=== PATIENT | female | born 1985 | race Caucasian/White ===

== ENCOUNTER 2022-07-17 16:45 | Inpatient (IN) | payer BC ==
[2022-07-17] VITALS (13 sets, daily range): BP systolic 129–162; BP diastolic 70–97; PULSE 72–92; TEMP 97.8–98.2
[~2022-07-17] VITALS: Ht 177.8 cm; Wt 117.7 kg
[2022-07-17] MEDS ORDERED: PRENATAL TABLET PO (17:13)
[2022-07-17] MEDS ORDERED: PROBIOTIC 2 BI1 EACH PO (17:13)
[2022-07-17] MEDS ORDERED: SINGULAIR 110 MG/TAB PO (17:13)
[2022-07-17] MEDS ORDERED: ZYRTEC5 MG PO (17:14)
[2022-07-17 18:17] LABS: HEMATOCRIT 37.5 % (37.0-47.0); HEMOGLOBIN 12.3 g/dl (12.5-16.0); MEAN CELL VOLUME 85 fl (80.0-100.0); MEAN CORPUSCULAR HEMOGLOBIN 28 pg (27-31); MEAN CORPUSCULAR HGB CONC 33 g/dl (33.0-37.0); MEAN PLATELET VOLUME 11.9 fl (7.4-10.4); PLATELET COUNT 259 K/mm3 (130-400); RED BLOOD COUNT 4.44 M/mm3 (4.10-5.30); REDCELL DISTRIBUTION WIDTH-CV 14.1 % (11.5-14.5)
[2022-07-17 18:19] LABS: COLLECTION METHOD CLEAN CATCH; URINE APPEARANCE Clear (CLEAR/HAZY); URINE BLOOD Negative (NEGATIVE); URINE COLOR Yellow (YELLOW); URINE GLUCOSE Negative (NEGATIVE); URINE KETONE Negative (NEGATIVE); URINE NITRATE Negative (NEGATIVE); URINE PROTEIN(semi-quant) Negative (NEGATIVE); URINE UROBILINOGEN 0.2 E.U/dL (0.2-1.0)
[2022-07-17 18:23] LABS: URINE BACTERIA Rare /hpf (NONE SEEN); URINE RBC 0-2 /hpf (0-2); URINE WBC 0-2 /hpf (0-2)
[2022-07-17 18:32] LABS: BAND 8 % (0-10); EOSINOPHIL 1 % (0-4); LYMPHOCYTE 24 % (20.0-51.0); METAMYELOCYTE 1 % (0-0); NEUTROPHILS 62 % (42.0-75.2); PLATELET ESTIMATE NORMAL (NORMAL)
[2022-07-17 18:33] LABS: ALBUMIN 2.6 gm/dL (3.5-5.0); BILIRUBIN,TOTAL 0.3 mg/dL (0.2-1.2); CALCIUM 9.4 mg/dL (8.4-10.2); CREATININE, serum 0.9 mg/dL (0.57-1.11); POTASSIUM 3.7 mmol/L (3.5-4.5)
--- NOTE | 2022-07-17 20:06 | NUR ---
1830 REPORT RECIEVED FROM A BRUCE RN TO ASSUME CARE OF PATIENT AT THIS TIME.
--- NOTE | 2022-07-17 20:08 | NUR ---
1900 ORDERS TO ADMIT PATIENT FOR INDUCTION AT THIS TIME. ASSESSMENT COMPLETED.
--- NOTE | 2022-07-17 20:10 | NUR ---
1910 DR RUIZ AT BEDSIDE. DISCUSSES PLAN WITH PATIENT AND . VERBAL UNDERSTANDING NOTED. SVE FT/60/-2. IV STARTED IN LEFT HAND LR [address] ESPINOZA.
--- NOTE | 2022-07-17 20:22 | NUR ---
2015 DR RUIZ AT BEDSIDE. CYTOTEC 25 MCG PLACED VAGINALLY BY AT THIS TIME.
--- NOTE | 2022-07-17 20:43 | NUR ---
2044 PATIENT REST SIN BED. DENIES NEEDS. WL.
--- NOTE | 2022-07-17 21:42 | NUR ---
118 PATIENT RESTS ON RIGHT SIDE. DENIES NEEDS
--- NOTE | 2022-07-17 21:53 | NUR ---
2200 REPORT GIVEN TO Chelo KERNS RN TO ASSUME CARE AT THIS TIME
[2022-07-18] VITALS (84 sets, daily range): BP systolic 118–184; BP diastolic 61–105; PULSE 68–94; TEMP 97.4–98.2
--- NOTE | 2022-07-18 05:00 | NUR ---
Category 1 FHR tracing obtained. Monitors removed. Pt up to bathroom to void, have small snack, and freshen up before starting pitocin induction.
[2022-07-18 08:37] LABS: HEMOGLOBIN 12.3 g/dl (12.5-16.0); MEAN CELL VOLUME 83 fl (80.0-100.0); MEAN CORPUSCULAR HEMOGLOBIN 28 pg (27-31); MEAN CORPUSCULAR HGB CONC 33 g/dl (33.0-37.0); MEAN PLATELET VOLUME 11.4 fl (7.4-10.4); PLATELET COUNT 256 K/mm3 (130-400); RED BLOOD COUNT 4.46 M/mm3 (4.10-5.30); REDCELL DISTRIBUTION WIDTH-CV 14.3 % (11.5-14.5)
[2022-07-18 08:58] LABS: ALBUMIN 2.5 gm/dL (3.5-5.0); BILIRUBIN,TOTAL 0.3 mg/dL (0.2-1.2); CALCIUM 9.2 mg/dL (8.4-10.2); CREATININE, serum 0.81 mg/dL (0.57-1.11); MAGNESIUM 1.9 mg/dL (1.6-2.6)
--- NOTE | 2022-07-18 10:31 | NUR ---
DR BENAVIDEZ HERE, DOES SVE AND DISCUSSES PREECLAMPSIA, LAB RESULTS, INDUCTION AND POSSIBILITIES FOR PLAN OF CARE
--- NOTE | 2022-07-18 10:54 | NUR ---
0832 - COOK CATHETER PLACED BY DR BENAVIDEZ 0838 - MAG SULFATE 4GM BOLUS STARTED 0845 - GALDAMEZ CATHETER PLACED
--- NOTE | 2022-07-18 11:01 | NUR ---
0857 - MAG 4 GM LOADING DOSE INFUSED, 1GM/HOUR STARTED PER INFUSION PUMP AT 25CC/HR, VVERIFIED WITH Chelo GEIGER RN
--- NOTE | 2022-07-18 11:17 | NUR ---
CTXS NOT TRACING DUE TO MATERNAL POSITION, TOCO ADJUSTED. BEDRAILS PADDED FOR SEIZURE PRECAUTIONS
--- NOTE | 2022-07-18 12:40 | NUR ---
CTXS NOT TRACING WHILE PT ON LEFT SIDE, PT MORE COMFORTABLE ON RIGHT SIDE, C/O BACK AND HIP DISCOMFORT, FEELING SLIGHTLY CRAMPY WITH CTXS
--- NOTE | 2022-07-18 12:43 | NUR ---
WARM PACK TO HIP AND BACK PER PT'S REQUEST. TOCO ADJUSTED, STILL UNABLE TO REFRIGERATION MANAGER CTXS WHILE PT ON LEFT SIDE
--- NOTE | 2022-07-18 14:42 | NUR ---
1405 SROM WITH MODERATE AMOUNT OF CLEAR FLUID, COOKS CATHETER STILL IN PLACE, TRACTION APPLIED AND TAPED TO LEG
--- NOTE | 2022-07-18 16:29 | NUR ---
1543 - COOKS CATHETER FALLS OUT, SVE DONE /-, LARGE AMOUNT OF CLEAR FLUID OUT, FREDERIC CARE DONE, PT STILL FEELS SLIGHTLY CRAMPY, MOSTLY C/O BACK DISCOMFORT. SITS UP IN HIGH FOWLERS
--- NOTE | 2022-07-18 17:18 | NUR ---
1640 LABETALOL 20MG GIVEN IV PUSH
--- NOTE | 2022-07-18 18:15 | NUR ---
UTERINE CTXS NOT TRACING D/T MATERNAL POSITION, TOCO ADJUSTED, PT COMFORTABLE AT THIS TIME, BUT REQUESTING EPIDURAL, T JESSE PORTAL ADMINISTRATOR NOTIFIED PT REQUESTING EPIDURAL
--- NOTE | 2022-07-18 18:20 | NUR ---
Report received from Jeannine PUTNAM. 1825: Ana María WHEELER on unit. 183: Pt assisted to sitting position for epidural placement. Difficulty tracing FHR due to maternal position. Monitors adjusted by this RN. Pt reporting a slight headache at this time but states it is better then before when her blood pressure was elevated. 1840: Ana María WHEELER at bedside for epidural. Procedure explained to pt and spouse who verbalize their understanding. 5: Test dose administered by Ana María WHEELER. See anesthesia records. 1904: Pt assisted to wedge left position. Plan of care and safety precautions explained. Questions answered. Call light within reach.
--- NOTE | 2022-07-18 20:40 | NUR ---
: Difficulty tracing contractions due to maternal position. TOCO adjusted multiple times. Provider aware of not being able to trace contractions.
--- NOTE | 2022-07-18 23:05 | NUR ---
SVE 5/80/-2. No scalp stimulation noted with cervical exam. Pericare provided and pt repositioned to left lateral position. 2320: notifies and updated on pt's status. See physican notification. Pt updated on provider coming in to speak about options. Questions answered at this time. 2335: at bedside to discuss options. 2340: Decision made for at this time. Pt tearful but understands and agrees with provider. Pt prepped for OR. 2356: Pt off the monitor and transfered back to the OR via bed. at bedside.
[2022-07-19] VITALS (30 sets, daily range): BP systolic 112–185; BP diastolic 65–96; PULSE 60–88; TEMP 97.4–98.6
--- NOTE | 2022-07-19 02:05 | NUR ---
Pt back in LR 6 after PACU. Post-op recovery vitals started. Magnesium restarted at this time due to providers orders.
[2022-07-19 05:53] LABS: HEMATOCRIT 39.9 % (37.0-47.0); HEMOGLOBIN 12.7 g/dl (12.5-16.0); MEAN CELL VOLUME 86 fl (80.0-100.0); MEAN CORPUSCULAR HEMOGLOBIN 27 pg (27-31); MEAN CORPUSCULAR HGB CONC 32 g/dl (33.0-37.0); MEAN PLATELET VOLUME 11.7 fl (7.4-10.4); PLATELET COUNT 253 K/mm3 (130-400); RED BLOOD COUNT 4.65 M/mm3 (4.10-5.30); REDCELL DISTRIBUTION WIDTH-CV 14.6 % (11.5-14.5)
[2022-07-19 06:16] LABS: ALBUMIN 2.5 gm/dL (3.5-5.0); BILIRUBIN,TOTAL 0.5 mg/dL (0.2-1.2); CALCIUM 8.8 mg/dL (8.4-10.2); CREATININE, serum 0.86 mg/dL (0.57-1.11); TOTAL PROTEIN 6.2 gm/dL (6.2-8.1)
[2022-07-19 06:24] LABS: BAND 6 % (0-10); HYPOCHROMIA 1+; LYMPHOCYTE 9 % (20.0-51.0); NEUTROPHILS 80 % (42.0-75.2); NUCLEATED RED BLOOD CELL 2 (0-6); PLATELET ESTIMATE NORMAL (NORMAL)
--- NOTE | 2022-07-19 09:01 | NUR ---
0800 MAGNESIUM SHUT OFF AT THIS TIME PER DR ROLES ORDER. WILL CONTINUE TO MONITOR IN LABOR FOR 2 HOURS, BEFORE MOVING TO FLOOR.
[2022-07-20 00:30] VITALS: BP 128/81; PULSE 78; TEMP 97.7
[2022-07-20 03:40] VITALS: BP 114/70; PULSE 72; TEMP 98.1
[2022-07-20 07:00] VITALS: BP 121/70; PULSE 95; TEMP 98.9
[2022-07-20] MEDS ORDERED: IBU800 M1 PO (09:25)
[2022-07-20] MEDS ORDERED: ROXICODONE 55 MG/TAB PO (09:26)
--- NOTE | 2022-07-20 13:19 | NUR ---
PT SHOWERED AND REMOVED DRESSING. INCISION VISUALIZED BY THIS NURSE WITH NO DRAINAGE AND EDGES WELL APPROXIMATED.
--- NOTE | 2022-07-20 15:48 | NUR ---
PT AND SPOUSE WATCHING EDUCATIONAL VIDEOS AT THIS TIME.
[2022-07-20 16:46] VITALS: BP 142/83; PULSE 72; TEMP 97.6
--- NOTE | 2022-07-20 17:00 | NUR ---
Assumed care of patient. Report given by Sheela krishna
[2022-07-20 20:30] VITALS: BP 141/80; PULSE 82; TEMP 98.8
[2022-07-21 07:36] VITALS: BP 144/78; PULSE 72; TEMP 97.9
--- NOTE | 2022-07-21 12:20 | NUR ---
1200 - DISCHARGE INSTRUCTIONS REVIEWED WITH PATIENT AND SPOUSE. QUESTIONS ANSWERED. 1220 - PATIENT AMBULATORY OFF UNIT ACCOMPANIED BY SPOUSE AND THIS RN.
== END 2022-07-21 12:20 | disposition home or self-care (01) | DRG 788 ==
LOC: LDRO 16:45 → OB 18:40 → LDR 18:40 → OB 07-19 10:30
PROVIDERS: Obstetrics & Gynecology; ADMIT Obstetrics & Gynecology
PROC: 10D00Z1 Extraction of Products of Conception, Low, Open Approach (ICD-10-PCS; principal; 2022-07-19)
DX: O14.14 Severe pre-eclampsia complicating childbirth (principal); O76 Abnormality in fetal heart rate and rhythm complicating labor and delivery; Z3A.37 37 weeks gestation of pregnancy; Z37.0 Single live birth; O99.214 Obesity complicating childbirth; Z86.16 Personal history of COVID-19; O99.824 Streptococcus B carrier state complicating childbirth; O13.4 Gestational [pregnancy-induced] hypertension without significant proteinuria, complicating childbirth
CPT/HCPCS: J0171; J0690; J1100; J1885; J2400; J2405; J2540; J2590; J3475; J7120

== ENCOUNTER → 2022-08-02 | Outpatient (CLI) | payer BC ==
[~2022-08-02] MED LIST: IBU800 M1 PO; PRENATAL TABLET PO; PROBIOTIC 2 BI1 EACH PO; ROXICODONE 55 MG/TAB PO; SINGULAIR 110 MG/TAB PO; ZYRTEC5 MG PO
--- NOTE | 2022-08-02 16:06 | NUR ---
Pt, Brianne Kennedy, presents to walk in clinic with 14 day old baby boy, Ruiz Benavides, for and milk supply concerns. She is accompanied by her spouse, Clint Benavides. Ruiz was born by c/section for FTP on [birth year]/19/[birth year]. He weighed 8# 1.8oz (3680 gms). His EDC was 08/03/22. Pt's was complicated by pre-eclampsia. Medical hx generally unremarkable with the exception of dx of PCOS at the age of 17. This did not cause fertility issues and becoming pregant was not difficult. Pt reports Ruiz had a tongue tie release on , seemed to latch and nurse okay with SNS which was continued after discharge from the hospital. This does not have all post-discharge dates and weights for Ruiz. They are on record at [facility] where he is being followed by Dr. Alejandre for Dr. Lentz. Ruiz was admitted to [facility] on 07/26/22 for weight loss (pt states he was 7# 6oz). He was evaluated by speech therapy for suck/swallow and the team at [facility]. He was discharged the following day after gaining 150 gms, per pt report. Today Ruiz weighs 7# 15.1 oz (3602 gms). Pt states his weight [address] Alejandre was 7# 14oz and four days ago he was 7# 13.3oz at [facility] clinic. Pt states she is bottle feeding Ruiz 1.5 to 2 oz q 3 hours. They frequently have to feed Ruiz in a side-lying position and bottle feeding can take upto 30 minutes. Pt is pumping q 3 hours, and collected her largest amount this AM of 15ml, but it is essentially all from the left breast. At this consult, Ruiz latches easily to the left breast. Pt advised on positon and angle to maximize Tor latch. After nursing the left side he had a gain of 24 gms. On the right breast he had little suck effort so SNS was utilized. Even with SNS Ruiz had poor effort and essentially this LC instilled formula into his mouth for him to swallow. His gain was only the 12 ml from the SNS syringe. 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 His suck effort is disorganzed for most of the evalutation, he likely still has some sublingual tether that causes poor grasping to the finger (breast) when he is sucking. After a good deal of effort and trying the hospital issued bottle nipple Ruiz eventually drank 42ml formula by bottle. Total intake is 24ml from breast and 54ml formula for a total intake of 78ml or 2.8oz. Impression: Between the vaulted palate and tongue tether this LC feels Ruiz has difficulty tranfering milk even by bottle that has lead to long and tiring feedings. This may be a factor in his reduced weight gain since his discharge from [facility]. Pt has low milk supply at two weeks PP, unknown if it will increase enough to meet Ruiz's needs. Recommendation: Have tongue tether re-evaluated by Dr. Jeanine DMD in [place], [place], or Megan Quintanilla DDS locally. Both of these providers use laser and have extensive experience in oral tethers. Continue to pump and bottle feed, trying to increase volume per feeding to 2.5-3oz. May offer breast but still need to follow with 2oz EBM or formula. Try faster flow nipple as observed in this consult to decrease amount of energy required to feed to see if Ruiz's rate of weight gain improves to the desired 0.5 - 1oz per day. F/U: Recommend weight check next week. As scheduled with Dr. Alejandre or Tor. Questions invited and answered.
== END ==
LOC: LAC 14:04
DX: Z39.1 Encounter for care and examination of lactating mother (principal)

== ENCOUNTER 2024-06-24 18:28 | Inpatient (IN) | payer BC ==
[~2024-06-24] VITALS: Ht 177.8 cm; Wt 108.2 kg
[2024-06-24] VITALS (9 sets, daily range): BP systolic 127–167; BP diastolic 61–105; PULSE 71–93; TEMP 98.4
--- NOTE | 2024-06-24 18:30 | NUR ---
Pt arrives to unit ambulatory with belongings for induction of labor for intrauterine demise. Denies pain, bleeding, or loss of fluid. Clean gown on. Oriented to room, call light within reach, bed in low and locked position. Vitals obtained. Admission assessment started. IV started in right hand with 1 attempt. Admission labs obtained off IV start.
[2024-06-24 19:25] LABS: BASO % 0.1 % (0.0-2.0); EOS # 0.2 K/mm3 (0.0-0.7); GRAN # 4.8 K/mm3 (1.4-6.5); GRAN % 59.6 % (42.2-75.2); HEMATOCRIT 38.2 % (37.0-47.0); HEMOGLOBIN 12.8 g/dl (12.5-16.0); LYMPH # 2.5 K/mm3 (1.2-3.4); LYMPH % 31.7 % (20.0-51.0); MEAN CELL VOLUME 84 fl (80.0-100.0); MEAN CORPUSCULAR HEMOGLOBIN 28 pg (27-31); MEAN CORPUSCULAR HGB CONC 34 g/dl (33.0-37.0); MEAN PLATELET VOLUME 10.5 fl (7.4-10.4); MONO # 0.5 K/mm3 (0.1-0.6); MONO % 6.4 % (1.7-9.3); PLATELET COUNT 254 K/mm3 (130-400); RED BLOOD COUNT 4.56 M/mm3 (4.10-5.30); REDCELL DISTRIBUTION WIDTH-CV 13.4 % (11.5-14.5)
[2024-06-24] MEDS ORDERED: ASPIRIN 81M81 MG/TA2 PO (19:37)
[2024-06-24 19:44] LABS: ALBUMIN 3.6 g/dL (3.5-5.0); BILIRUBIN,TOTAL 0.3 mg/dL (0.2-1.2); CALCIUM 9.4 mg/dL (8.4-10.2); CREATININE, serum 0.61 mg/dL (0.57-1.11); POTASSIUM 3.2 mEq/L (3.5-4.5); TOTAL PROTEIN 7.3 g/dl (6.2-8.1)
--- NOTE | 2024-06-24 19:45 | NUR ---
Roles at bedside to review plan of care with patient. Questions invited and answered. Pt agreeable with plan for cytotec induction.
[2024-06-24] MEDS ORDERED: LR 1,000 ML IV SCH (20:15)
[2024-06-24] MEDS ORDERED: miSOPROStol 200 MCG TAB VG PRN (20:15)
[2024-06-24] MEDS ORDERED: Ondansetron 4 MG/2 ML VIAL IV PRN (20:15)
--- NOTE | 2024-06-24 20:48 | NUR ---
Pt up to bathroom to void. Once back in bed 200 mcg of cytotec placed to posterior fornix of vagina. Pt educated on needing to stay in bed for 1 hour after placement. Verbalized understanding.
[2024-06-25] VITALS (45 sets, daily range): BP systolic 101–172; BP diastolic 51–85; PULSE 69–94; TEMP 98–99.3
--- NOTE | 2024-06-25 | NUR ---
Pt up to bathroom to void. Denies feeling contractions, reports rare mild cramping. No bleeding or loss of fluid. Pt has been able to sleep comfortably.
--- NOTE | 2024-06-25 01:03 | NUR ---
Pt sleeping comfortably upon entering room, denies feeling contractions . 2nd done of 200mcg cytotec placed to posterior fornix of vagina. Cervix closed/thick/high.
--- NOTE | 2024-06-25 02:30 | NUR ---
Up to bathroom to void. Pt denies feeling contractions and has been sleeping comfortably.
--- NOTE | 2024-06-25 05:05 | NUR ---
Pt resting comfortably in bed. Pt denies feeling contractions or cramping. Up to bathroom to void. 200 mcg of cytotec placed to posterior fornix of vagina.
[2024-06-25] MEDS ORDERED: ROPivacaine PF 0.2% 200 ML IV ONE (08:39)
--- NOTE | 2024-06-25 09:00 | NUR ---
0845- SUMMER MADRID IN PATIENTS ROOM FOR EPIDURAL PLACEMENT. [facility]CY EXPLAINS PROCEDURE, PATIENT GIVES VERBAL CONSENT FOR EPIDURAL PLACEMENT. 0850- PATIENT POSITIONED FOR EPIDURAL PLACEMENT. 0853- TEST DOSE ADMINISTERED BY SUMMER MADRID. PATIENT TOLERATED WELL. 0900- PATIENT REPOSITIONED TO WEDGED RIGHT, THIS RN REMAINS AT BEDSIDE TO MONIOTR VITAL SIGNS.
[2024-06-25] MEDS ORDERED: diphenhydrAMINE 25 MG CAP PO PRN (09:15)
[2024-06-25] MEDS ORDERED: ePHEDrine 50 MG/10 ML VIAL IV PRN (09:15)
[2024-06-25] MEDS ORDERED: diphenhydrAMINE 50 MG/ML 1 ML VIAL IV PRN (09:15)
[2024-06-25] MEDS ORDERED: Naloxone 0.4 MG/ML VIAL IV PRN ×2 (09:15→14:15)
[2024-06-25] MEDS ORDERED: Ondansetron 4 MG/2 ML VIAL IV PRN (09:15)
--- NOTE | 2024-06-25 09:20 | NUR ---
AT BEDSIDE TO ASSESS PATIENT PROGRESS. SVE 2+/70/-2. REQUESTS A FOURTH DOSE OF CYTOTEC BE PLACED.
--- NOTE | 2024-06-25 11:06 | NUR ---
THIS RN TO BEDSIDE TO ADJUST TOCO DUE TO CONTRACTIONS NOT TRACING WELL. TOCO ADJUSTED AND TRACING.
--- NOTE | 2024-06-25 12:26 | NUR ---
THIS RN TO BEDSIDE TO ADJUST TOCO DUE TO CONTRACTIONS NOT TRACING WELL. TOCO ADJUSTED AND TRACING CONTRACTIONS
--- NOTE | 2024-06-25 13:53 | NUR ---
1331- THIS RN AND TO BEDSIDE TO ASSESS PATIENT PROGRESS. UPON ENTERING ROOM AND REMOVING COVERS, WAS DELIVERED SPONTANEOUSLY IN THE BED. CLAMPS AND CUTS CORD AND INFANT IS MOVED TO THE WARMER. ROOM IS THEN PREPARED FOR PLACENTA DELIVERY 1353- PLACENTA DELIVERS SPONTANEOUSLY IN PIECES. PITOCIN IS STARTED AT 333mU/HR ORDERED AND PER PROTOCOL. PERFORMS CURETTAGE AT BEDSIDE TO ENSURE PLACENTA WAS DELIVERED COMPLETELY.
[2024-06-25] MEDS ORDERED: Loratadine 10 MG TAB PO PRN (14:15)
[2024-06-25] MEDS ORDERED: Ibuprofen 800 MG TAB PO SCH (14:15)
[2024-06-25] MEDS ORDERED: Magnes Hydrox (MOM) 80 MG/ML 30 ML CUP PO PRN (14:15)
[2024-06-25] MEDS ORDERED: Mag/Al Hydrox/Simeth Susp 30 ML CUP PO PRN (14:15)
[2024-06-25] MEDS ORDERED: oxyCODONE 5 MG TAB PO PRN (14:15)
[2024-06-25] MEDS ORDERED: Acetaminophen 500 MG TAB PO SCH (14:15)
--- NOTE | 2024-06-25 15:06 | NUR ---
1433: Photocopying Equipment Mechanic RN was notified by [employer] [facility] demise delivered at 1331. Baby is still with the parents and has not yet been weighed. 1434: Chriss called [facility], pt is not a canidate for donation due to size. Reference number: [id number]. 1508: Chriss reached out to [employer] [facility] and relayed, charge verbally acknowledged.
[2024-06-25] MEDS ORDERED: LR & Oxytocin 500 ML IV SCH (15:30)
--- NOTE | 2024-06-25 16:57 | NUR ---
Data: OB RN contacted commission associate Screen Printing Paster for demise. Parents would like a rastafarian. Parents are Hinduism, but do not have a presybeterian. Screen Printing Paster used rastafarian service found in the [facility] for the Naming and Commendaton of an Infant Who before . Baby is Nora Benavides. Assessment: Parents are grieving appropriately. Desire rastafarian. Plan of Care: Screen Printing Paster provided supportive listening and a rastafarian service. Prayer at end of service. Affirmation of certificate. The sea shell used in the rastafarian. Parents expressed appreciation for the ceremony. Chaplains will remain available as needed/requested while Patient is admitted to this hospital.
[2024-06-25] MEDS ORDERED: Sennosides/Docusate 8.6-50 MG TAB PO SCH (17:00)
--- NOTE | 2024-06-25 19:00 | NUR ---
Able to move L leg freely but barely able to bend R knee.
--- NOTE | 2024-06-25 19:35 | NUR ---
Up to bathroom with careful steady gait. Pt reports "R leg still tingly". Voids moderate amount, performs own pericare. Back to bed without difficulty.
--- NOTE | 2024-06-25 20:50 | NUR ---
up to bathroom with steady gait. Voids good amount. Back to bed without difficulty.
[2024-06-25] MEDS ORDERED: traZODone 50 MG TAB PO PRN (21:00)
--- NOTE | 2024-06-25 21:15 | NUR ---
Discharge ambulatory off unit with spouse, accompanied by this RN.
[2024-06-26] MEDS ORDERED: Cetirizine 10 MG TAB PO SCH (09:00)
[2024-06-26] MEDS ORDERED: Montelukast 10 MG TAB PO SCH (09:00)
== END 2024-06-25 21:15 | disposition home or self-care (01) | DRG 797 ==
LOC: LDRO 18:28 → LDR 20:18
PROVIDERS: ADMIT Obstetrics & Gynecology
PROC: 10E0XZZ Delivery of Products of Conception, External Approach (ICD-10-PCS; principal; 2024-06-24)
PROC: 10D17ZZ Extraction of Products of Conception, Retained, Via Natural or Artificial Opening (ICD-10-PCS; 2024-06-24)
DX: O72.0 Third-stage hemorrhage (principal); Q91.3 Trisomy 18, unspecified; Z37.1 Single stillbirth; Z3A.19 19 weeks gestation of pregnancy
CPT/HCPCS: J1920; J2590; J2795; J7120

== ENCOUNTER 2024-06-28 09:27 | Emergency (ER) | payer BC ==
[~2024-06-28] VITALS: Ht 175.3 cm; Wt 104.1 kg
[~2024-06-28 09:27] MED LIST changes: +ASPIRIN 81M81 MG/TA2 PO
[2024-06-28 09:44] VITALS: TEMP 98.1
[2024-06-28 10:23] LABS: BASO % 0.2 % (0.0-2.0); EOS # 0.2 K/mm3 (0.0-0.7); EOS % 2.2 % (0.0-4.0); GRAN # 5.9 K/mm3 (1.4-6.5); GRAN % 69.2 % (42.2-75.2); HEMATOCRIT 42.2 % (37.0-47.0); HEMOGLOBIN 13.9 g/dl (12.5-16.0); LYMPH # 1.9 K/mm3 (1.2-3.4); LYMPH % 22.2 % (20.0-51.0); MEAN CELL VOLUME 85 fl (80.0-100.0); MEAN CORPUSCULAR HEMOGLOBIN 28 pg (27-31); MEAN CORPUSCULAR HGB CONC 33 g/dl (33.0-37.0); MEAN PLATELET VOLUME 9.9 fl (7.4-10.4); MONO # 0.5 K/mm3 (0.1-0.6); MONO % 5.6 % (1.7-9.3); PLATELET COUNT 283 K/mm3 (130-400); RED BLOOD COUNT 4.95 M/mm3 (4.10-5.30); REDCELL DISTRIBUTION WIDTH-CV 13.5 % (11.5-14.5)
[2024-06-28 10:43] LABS: ALBUMIN 3.6 g/dL (3.5-5.0); BILIRUBIN,TOTAL 0.4 mg/dL (0.2-1.2); CALCIUM 9.3 mg/dL (8.4-10.2); CREATININE, serum 0.72 mg/dL (0.57-1.11); POTASSIUM 3.6 mEq/L (3.5-4.5); TOTAL PROTEIN 7.3 g/dl (6.2-8.1)
[2024-06-28 10:47] LABS: COLLECTION METHOD CLEAN CATCH
[2024-06-28 10:48] LABS: URINE APPEARANCE Clear (CLEAR/HAZY); URINE COLOR Yellow (YELLOW); URINE GLUCOSE Negative (NEGATIVE); URINE KETONE Negative (NEGATIVE); URINE NITRATE Negative (NEGATIVE); URINE PROTEIN(semi-quant) Negative (NEGATIVE); URINE UROBILINOGEN 0.2 E.U/dL (0.2-1.0)
[2024-06-28 10:49] LABS: URINE BLOOD 3+ (NEGATIVE)
[2024-06-28] MEDS ORDERED: NIFEdipine XL 30 MG TAB PO ONE (11:00)
[2024-06-28] MEDS ORDERED: PROCARDIA XL 3030 MG PO (11:01)
[2024-06-28 12:12] VITALS: BP 146/97; PULSE 88
== END 2024-06-28 11:35 | disposition home or self-care (01) ==
LOC: COL.ER 09:27
PROVIDERS: Family Medicine
DX: O16.5 Unspecified maternal hypertension, complicating the puerperium (principal)